=== PATIENT | female | born 1985 | race Caucasian/White ===

== ENCOUNTER 2021-12-23 13:09 | Emergency (ER) | payer OTHER ==
[~2021-12-23] VITALS: Ht 167.6 cm; Wt 68.0 kg
--- OUTSIDE RECORDS SUMMARY | 2021-12-23 13:12 | XMS ---
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 [facility] has no Care Guidelines for this patient. [place] VISIT COUNT (12 MO.) 1 [facility] [place] TOTAL 1 NOTE: Visits indicate total known visits. ED/C VISIT TRACKING (12 MO.) 12/23/2021 13:11 [facility]IN [place] TYPE: Emergency COMPLAINT: - HEART PALS, NAUSEA, DIZZY, NUMBNESS BOTH HANDS INPATIENT VISIT TRACKING (12 MO.) No inpatient visits to display in this time frame [email or web address]
[2021-12-23] MEDS ORDERED: GABAPENTIN100 MG PO (14:11)
[2021-12-23] MEDS ORDERED: RITALIN20 MG PO (14:12)
[2021-12-23] MEDS ORDERED: SEROQUEL100 MG PO (14:12)
[2021-12-23] MEDS ORDERED: NEURONTIN300 MG PO (16:54)
--- NOTE | 2021-12-25 17:27 | EKG ---
[facility] [address] [facility] [place] [address] Signed Sinus bradycardia Otherwise normal ECG No previous ECGs available Confirmed by SULTANA PAYNE MD ([id number]) on 12/25/2021 5:26:56 PM Electronically Signed By: SULTANA PAYNE MD 12/25/21 1727 PATIENT NAME: JUSTIN DE SOUZA Electrocardiogram DATE OF : 81 PHYSICIAN: SULTANA PAYNE MD REPORT #: [id number] REPORT IS CONFIDENTIAL AND NOT TO BE RELEASED WITHOUT AUTHORIZATION
== END 2021-12-23 17:03 | disposition home or self-care (01) ==
LOC: ED 13:09
DX: F41.9 Anxiety disorder, unspecified (principal); F43.10 Post-traumatic stress disorder, unspecified; Z79.899 Other long term (current) drug therapy
CPT/HCPCS: 93005; 93010; 99284-25